=== PATIENT | male | born 1965 | race Caucasian/White ===

== ENCOUNTER → 2016-11-20 | Outpatient (CLI) | payer OTHER ==
[2016-11-20 14:36] LABS: BASO % 0.5 %; BASO ABS # 0.03 K/uL (0-0.2); COMPLETE YES; EOS % 0.5 %; HEMATOCRIT 42.7 % (42-52); IG% 0.3 %; LYMPH % 15.7 %; LYMPH ABS # 0.98 K/uL (1.2-3.4); MEAN CELL VOLUME 84.7 fL (80-100); MEAN CORPUSCULAR HEMOGLOBIN 30.4 pg (25-34); MEAN CORPUSCULAR HGB CONC 35.8 g/dl (32-36); MONO % 5.3 %; NEUT % 77.7 %; PLATELET COUNT 211 K/uL (130-400); RED BLOOD COUNT 5.04 M/uL (4.7-6.1); WHITE BLOOD COUNT 6.25 K/uL (4.8-10.8)
[2016-11-20 15:15] LABS: ALKALINE PHOSPHATASE 158 U/L (45-117); ALT/SGPT 39 U/L (12-78); AST/SGOT 19 U/L (15-37); BLOOD UREA NITROGEN 14 mg/dl (7-18); BUN/CREATININE RATIO 11.7 (10-20); CALCIUM 9.4 mg/dl (8.5-10.1); CARBON DIOXIDE 23 mmol/L (21-32); CHLORIDE 90 mmol/L (98-107); CHOLESTEROL 212 mg/dl (0-200); CHOLESTEROL/HDL RATIO 4.5; GLUCOSE 741 mg/dl (70-99); HDL CHOLESTEROL 47 mg/dl; LDL CHOLESTEROL CALCULATED 126 mg/dl; POTASSIUM 5.2 mmol/L (3.5-5.1); SODIUM 124 mmol/L (136-145); TRIGLYCERIDES 194 mg/dl (0-150); VERY LOW DENSITY LIPOPROT CALC 39 mg/dl
[2016-11-20 15:28] LABS: BETA-HYDROXYBUTYRATE 6.09 mg/dL (0.2-2.81)
[2016-11-21 05:48] LABS: ESTIMATED AVERAGE GLUCOSE 355 mg/dl; HA1C FLAG Normal (Normal)
== END | disposition home or self-care (01) ==
LOC: C.LABSPEC 13:38
PROVIDERS: ATTEND Family Medicine
DX: E11.21 Type 2 diabetes mellitus with diabetic nephropathy (principal); I10 Essential (primary) hypertension; E78.2 Mixed hyperlipidemia; R53.83 Other fatigue

== ENCOUNTER → 2017-02-22 | Outpatient (CLI) | payer OTHER ==
[2017-02-22 18:34] LABS: ALT/SGPT 35 U/L (12-78); AST/SGOT 22 U/L (15-37); BLOOD UREA NITROGEN 16 mg/dl (7-18); BUN/CREATININE RATIO 15.7 (10-20); CALCIUM 9.4 mg/dl (8.5-10.1); CARBON DIOXIDE 27 mmol/L (21-32); CHLORIDE 102 mmol/L (98-107); CREATININE 1.03 mg/dl (0.60-1.40); GLUCOSE 313 mg/dl (70-99); POTASSIUM 4.2 mmol/L (3.5-5.1); SODIUM 135 mmol/L (136-145)
[2017-02-22 18:36] LABS: ALB/GLOB RATIO 0.9 (0.9-2)
[2017-02-22 18:44] LABS: ALKALINE PHOSPHATASE 118 U/L (45-117)
[2017-02-23 06:42] LABS: ESTIMATED AVERAGE GLUCOSE 217 mg/dl; HA1C FLAG Normal (Normal)
== END | disposition home or self-care (01) ==
LOC: C.LABSPEC 17:46
PROVIDERS: ATTEND Family Medicine
DX: E11.21 Type 2 diabetes mellitus with diabetic nephropathy (principal)

== ENCOUNTER 2018-09-18 05:52 | Observation (INO) ==
--- NOTE | 2018-09-12 14:12 | Anesthesiology Consultation ---
Date of Service September 12, 2018 Assessment & Plan (1) Encounter for pre-operative examination: 09/12 - Case discussed with Dr. Starr, who states patient will need to have better glycemic control prior to procedure if anesthesia is to be involved--glucose was 496 on pre-op labs, most recent A1C was 14.2 in April 2018. Surgeon's office made aware--Dr. Boone ordering repeat fasting BMP. BMP done Saturday 09/16 -- glucose 429. Informed Dr. Starr, who feels case still needs to be postponed until glucose better controlled. Spoke to Nichelle at surgeon's office. She states Dr. Boone will do the case under local anesthesia if Dr. Starr does not want to proceed. Dr. Starr's contact info provided to facilitate conversation between surgeon and anesthesia. Chart Review Chart Review: Patient NOT seen in Pre Admission Testing History Surgery Operation Date: 09/18/18 08:00 Proposed Procedures p Biventricular ICD Implant, with Anesthesia - Felecia Boone, DO Height/Weight Height: 5 ft 10 in Weight: 83.46 kg Allergies Allergy/AdvReac Type Severity Reaction Status Date / Time Penicillins Allergy Hives Verified 09/13/18 13:35 Medications Home Medications Medication Instructions Recorded Confirmed Last Taken furosemide [Lasix] 80 mg PO QAM 09/12/18 09/13/18 Unknown metformin 1,000 mg PO BID 09/12/18 09/13/18 Unknown metoprolol succinate 200 mg PO QAM 09/12/18 09/13/18 Unknown semaglutide [Ozempic] 0.5 mg SUBCUT WK 09/12/18 09/13/18 Unknown valsartan 80 mg PO QPM 09/12/18 09/13/18 Unknown insulin NPH and regular human 16 ml SUBCUT BIDM 09/13/18 09/13/18 Unknown [Novolin 70/30 U-100 Insulin] Past Medical History Medical History NYHA Class II cardiovascular function Type 2 diabetes mellitus Essential (primary) hypertension Chronic systolic heart failure EF 15-20%; Currently wearing life vest. Dilated cardiomyopathy Past Family History Family History Mother Family history of diabetes mellitus Past Surgical History Surgical History Hx of cardiac cath [facility] - 02/14/18; NO STENTS History of shoulder surgery History of carpal tunnel release of both wrists Hx of hand surgery LEFT HAND Testing Laboratory Results 09/06/18 WBC: 3.48 H/H: 12.1/35.5 PLATELETS: 212 SODIUM: 136 POTASSIUM: 4.3 CHLORIDE: 93 CO2: 28 BUN: 14 CREATININE: 1.0 GLUCOSE: 496 SURGEON MADE AWARE Electrocardiogram Date: 05/17/18 Findings: + ST @ (102) Possible left atrial enlargement. Left axis deviation. Nonspecific intraventricular conduction delay. Compared with EKG of 02/22/2018, no sig nificant changes found. Chest X-Ray Date: 05/17/18 Findings: + NAD Echocardiogram Date: 07/12/18 EF: <20% EF is severely reduced. Left ventricular cavity is severely dilated. The LV wall thickness is normal. There is no left ventricular mural thrombus. There is severe diffuse left ventricular hypokinesis. Mildly dilated and hypokinetic right ventricle. Biatrial dilation. No significant change compared to study dated 02/11/2018. Cardiac Catheterization Date: 02/14/18 Mild nonobstructive 1 vessel CAD involving LAD otherwise normal coronary arteries per angiography. LVEDP 25 mmHg. EF less than 15%. Other Testing Cardiac MRI 08/27/2018 1. Severe biventricular dilation and systolic dysfunction. Prominent mid cavity anterior and lateral trabeculations are noted. These findings may be secondary to severe LV dilation, however primary non-compaction cardia myopathy leading to LV dysfunction and dilation cannot be excluded (especially in the presence of a positive family history of familial cardiomyopathy). Atypical mid wall enhancement noted in septal and inferolateral segments on late gadolinium enhanced imaging. 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 2. The left ventricular cavity size is severely enlarged. The LV wall thickness is normal. Left ventricular systolic function is severely reduced with a ca lculated EF of 11%. 3. The right ventricular cavity size is severely enlarged. The right ventricular systolic function severely reduced with an EF of 14%. 4. Severe left atrial enlargement.
[2018-09-18] MEDS ORDERED: CLINDAMYCIN 600 MG/54 ML BAG IV SCH (06:00)
[2018-09-18] MEDS ORDERED: LR 15ML/HR IV SCH (06:00)
[2018-09-18] MEDS ORDERED: CEFAZOLIN 1000MG 1,000 MG/7.5 ML SYR IV SCH (07:00)
[2018-09-18] MEDS ORDERED: BUPIVACAINE 0.25% 30 ML VIAL ONE (07:37)
[2018-09-18] MEDS ORDERED: LIDOCAINE HCL 1% 20 ML VIAL ONE (07:37)
[2018-09-18] MEDS ORDERED: BACITRACIN INJ 50,000 UNIT VIAL ONE (07:38)
--- NOTE | 2018-09-18 07:56 | Pre Anesthesia Assessment ---
Date of Service September 18, 2018 Pre Sedation Assessment Vital Signs Temp Pulse Resp BP Pulse Ox 09/18/18 07:17 36.7 C 87 16 105/72 96 Cardiovascular RRR, no murmur, no edema Respiratory normal respiratory effort, lungs clear to auscultation Pre-Sedation Airway Assessment Smoking Status: Never smoker Hx Sleep Apnea: No Hx Difficult Intubation: No Short, Thick Neck: No Thyromental Distance: < 3.5 Finger Breadths Oral Cavity: + Dental Abnormalities Mallampati Class: III ASA: ASA3 NPO Status Date of Last Intake of Fluids: 09/17/18 Date of Last Intake of Solid Food: 09/17/18 Procedure Planning Contraindications for Sedation: none Current Medications Reviewed: Yes Notes The planned sedation has been discussed with the patient. Informed Consent was obtained. I have identified the patient, determined the appropriateness of sedation and have assessed the patient immediately prior to the procedure. All medicine(s) and interventions are by my order.
--- NOTE | 2018-09-18 07:58 | History & Physical Report ---
Date of Service September 18, 2018 Assessment & Plan (1) NICM (nonischemic cardiomyopathy): History of Present Illness Chief Complaint: pt for elective BiV ICD Primary Care Provider: NO PCP Allergies Allergy/AdvReac Type Severity Reaction Status Date / Time Penicillins Allergy Hives Verified 09/13/18 13:35 Home Medications Home Medications Medication Instructions Recorded Confirmed Type furosemide [Lasix] 80 mg PO QAM 09/12/18 09/13/18 History metformin 1,000 mg PO BID 09/12/18 09/13/18 History metoprolol succinate 200 mg PO QAM 09/12/18 09/13/18 History semaglutide [Ozempic] 0.5 mg SUBCUT WK 09/12/18 09/13/18 History valsartan 80 mg PO QPM 09/12/18 09/13/18 History insulin NPH and regular human 16 ml SUBCUT BIDM 09/13/18 09/13/18 History [Novolin 70/30 U-100 Insulin] Past Med/Surg History Medical History NYHA Class II cardiovascular function Type 2 diabetes mellitus Essential (primary) hypertension Chronic systolic heart failure EF 15-20%; Currently wearing life vest. Dilated cardiomyopathy Surgical History Hx of cardiac cath [facility] - 02/14/18; NO STENTS History of shoulder surgery History of carpal tunnel release of both wrists Hx of hand surgery LEFT HAND Family History Mother Family history of diabetes mellitus Social History Preferred Language: Amharic Communication Ability: Effective Rotary Soil Stabilizer Operator Required: Yes Beliefs That Will Affect Care: None Current Living Situation: Family Feels Safe at Home: Yes Smoking Status: Never smoker Do You Dip or Chew Tobacco: Yes Hx Alcohol Use: No Hx Substance Use: No Review of Systems All systems reviewed & are unremarkable except as noted in HPI & below Physical Exam Physical Exam: aaox3, NAD NC/AT, EOMI Supple No JVD Nrl S1/S2, No murmur CTA b/l no w/r/r soft nt/nd no LE edema b/l skin intact no focal deficits Results & Data Vital Signs (Past 12 Hours) Vital Signs Temp Pulse Resp BP Pulse Ox 09/18/18 07:17 36.7 C 87 16 105/72 96
[2018-09-18] MEDS ORDERED: fentaNYL citrate 100 MCG/2 ML VIAL ONE ×2 (08:03→09:45)
[2018-09-18] MEDS ORDERED: MIDAZOLAM HCL 5 MG/ML 1 ML VIAL ONE (08:03)
[2018-09-18] MEDS ORDERED: MIDAZOLAM HCL 1 MG/ML 2ML VIAL ONE (09:45)
--- NOTE | 2018-09-18 11:02 | Post Anesthesia Assessment ---
Date of Service September 18, 2018 Post Sedation Assessment Vital Signs Temp Pulse Resp BP Pulse Ox 09/18/18 07:17 36.7 C 87 16 105/72 96 Recovery Score Activity: Moves 4 extremities Respiration: Deep Breath/Cough Circulation: +/-20% PreAnes Value Consciousness: Fully Awake Oxygen Saturation: > 92% On Room Air Discharge Sedation Level of Care: Fast Track Phase II Post Sedation Plan On clinical assessment, the patient appears to have tolerated the sedation without complications. Patient is recovering as anticipated. Patient will continue to be monitored by nursing and may be discharged when sedation discharge criteria are met per below protocol. Upon Completions of procedure and additional 15 minutes continue every 5 minute vital signs and the P.A.R. score; then discharge to a Phase I or Fast Track to Phase II per the following guidelines: * Discharge Patient to appropriate Phase II area if PAR is 8 or greater or return to pre- procedure baseline. The post - procedure orders will be as directed. * If PAR score is less than 8 or not return to pre-procedure baseline then patient will follow Phase I monitoring till PAR is reached for Phase II. The Phase I may be done in procedure room or may call to secure a Phase I area. * If naloxone or flumazenil are used for reversal, hold in Phase I for continued monitoring from when last reversal dose was given for a minimum of 60 minutes or longer pending the nurse and/or physician discretion of patient condition before discharge to Phase II. Please call the Sedation Physician to re-evaluate and complete post-note for discharge to Phase II area. Do NOT discharge from procedure sedation or Phase 1 until post- sedation evaluation note is complete by procedure /sedation MD Sedation Discharge Instructions to be given to the patient at discharge to home.
[2018-09-18] MEDS ORDERED: OXYCODONE/ACETAMINOPHEN 5mg/325mg TAB PO PRN (11:03)
--- NOTE | 2018-09-18 11:03 | Operative Report ---
Post Operative Report Pre & Post Diagnosis NICM, LBBB, Chronic systolic HF NYHA Class II Operation Date: 09/18/18 08:00 <No data on this case meets the specified criteria> Procedure Operation Date: 09/18/18 08:00 Actual Procedures p ICD Insertion Single or Dual - DO donna Payne Lead LV (No Priopr Implant) - DO donna Payne Venogram, Unilateral - Felecia Boone DO Surgeon Felecia Boone, Linesperson none Estimated Blood Loss 20 Findings Consistent with Post-Op Diagnosis Specimens none Description of Procedure see official procedure I attest to the content of the Intraoperative Record and any orders documented therein. Any exceptions are noted below.
--- NOTE | 2018-09-18 11:11 | Discharge Summary ---
Date of Service September 19, 2018 Admission HPI Per Admitting Provider Pt admitted for elective BIV ICD due to NICM, LBBB and chronic systolic HF NYHA Class II Admission Exam Per Admitting Provider aaox3, NAD NC/AT, EOMI Supple No JVD Nrl S1/S2, No murmur CTA b/l no w/r/r soft nt/nd no LE edema b/l skin intact no focal deficits Principal Diagnosis NICM s/p BiV ICD Discharge Exam aaox3, NAD NC/AT, EOMI Supple No JVD Nrl S1/S2, No murmur CTA b/l no w/r/r soft nt/nd no LE edema b/l skin intact no focal deficits left pectoral incision intact, no hematoma mild ecchymosis Discharge Data Allergies Allergy/AdvReac Type Severity Reaction Status Date / Time Penicillins Allergy Hives Verified 09/13/18 13:35 Procedures Performed Operation Date: 09/18/18 08:00 Actual Procedures p ICD Insertion Single or Dual - Felecia Boone DO s Lead LV (No Priopr Implant) - Felecia Boone DO s Venogram, Unilateral - Felecia Boone DO Ordered Studies CXR: No PTX, leads in position ECG: -BiV Paced Post Implant BiV ICD Interrogation: Normal function 09/18/18 07:15 EP Lab Images for PACS ONCE Hospital Course (1) LBBB (left bundle branch block): Total Time Total Time Spent Total Time Spent (In Minutes): 30 Total Time Includes: Examination of the Patient, Discharge Planning, Medication Reconciliation and Other Discharge Plan Discharge Items Patient Disposition: Home - Self-Care Reason For Visit: Non-ischemic Cardiomyopathy Discharge Diagnosis: nicm s/p biv icd Condition: Good Discharge Goals: Improve function Activity: As commented below Activity Comment: do not lift the left elbow over the left shoulder for 1 month Lifting: No more than 10 pounds Lifting Comment: do not lift more than 10 pounds with the left arm for 2 weeks Bathing: Keep incision dry Bathing Comment: can shower wednesday 09/20 let water run over the incision do not scrub it Sexual Activity: After two weeks Driving/Machine Use: Resume 1 day after discharge Non-emergency contact: Fastener Technologist Call non-emergency contact if: you have any medication questions Follow-Up/Referrals: PCP,NO [Primary Care Provider] - Diet: Resume previous diet Addtl Provider Instructions: device and wound check next week in [facility] if you notice any swelling or any concerns with the incision site call my office immediately Prescriptions: Continued furosemide [Lasix] 40 mg Tablet 80 mg PO QAM RF: 0 metformin 500 mg Tablet 1,000 mg PO BID RF: 0 metoprolol succinate 200 mg Tablet Extended Release 24 Hr 200 mg PO QAM RF: 0 valsartan 80 mg Tablet 80 mg PO QPM RF: 0 Ozempic 0.25 mg or 0.5 mg(2 mg/1.5 mL) Pen Injector 0.5 mg SUBCUT WK RF: 0 Novolin 70/30 U-100 Insulin 100 unit/mL (70-30) Suspension 16 ml SUBCUT BIDM RF: 0 Stand-Alone Forms: My [facility] Admission Data Attending Provider: Felecia Boone Primary Care Provider: PCP,NO
[2018-09-18] MEDS ORDERED: NON-FORMULARY MEDICATION (Semaglutide [Ozempic] 0.5 MG) SQ SCH (11:15)
[2018-09-18] MEDS ORDERED: PHARMACY GLYCEMIC MGMT CONSULT PRN (11:54)
[2018-09-18] MEDS ORDERED: INSULIN DETEMIR PER UNIT CHARGE SC ONE (12:15)
[2018-09-18] MEDS ORDERED: INSULIN REGULAR 250 UNITS in SODIUM CHLORIDE 0.9% 247.5 ML IV SCH (12:15)
[2018-09-18] MEDS ORDERED: INSULIN HUMAN REGULAR IV BOLUS 2 UNITS in SYRINGE 0 ML IV ONE (12:15)
[2018-09-18] MEDS: INSULIN ASPART 100 UNITS/ML 3 ML PEN SC SCH ×3 (13:30→20:01)
--- NOTE | 2018-09-18 13:52 | Pharmacy Report ---
Glycemic Control Consultation - Date of Service September 18, 2018 - Scope Scope: Glycemic Pharmacist consulted for glycemic control and to write orders per [facility] inpatient glycemic control protocol - Objective Weight: 80 kg Accuchecks BSG (last 24hrs): 09/18/18 09/18/18 09/18/18 07:28 07:30 11:09 POC Glucose 377 H* 361 H* 375 H* 09/18/18 09/18/18 11:38 11:39 POC Glucose 373 H* 384 H* - Recent Pertinent Medications Outpatient Anti-diabetic Regimen: * Novolin 70/30 16 units SC BIDM * Metformin 1 g po BID * Semaglutide 0.5 mg SC qWK * A1c = 9.2 % in 2017 Risk Factors for Insulin Resistance: * Infection: clindamycin perioperative * Recent Surgery: POD 0 s/p ICD insertion * Diet: T2DM - Assessment & Plan Assessment & Plan: ASSESSMENT: * 52 yo M with poor glycemic control as outpatient admitted for ICD insertion * BSG's all >350 mg/dL today - insulin drip would be best to quickly gain better control with the least risk for hypoglycemia. Discussed w Dr. Boone - JIE to start drip. Extensively discussed goal range risk/benefit for wound healing but also minimize symptoms of hypoglycemia (patient will be prone to symptoms of hypoglycemia even at euglycemic blood sugars 2nd degree of outpatient hyperglycemia). Will use goal range for DKA for now. * Per conversations w RN and Dr. Boone - usual BSG's as outpatient in 300's, sometimes 400's. Will not order A1c at [facility] at this time as Dr. Boone notes recent A1c in [facility] and does not need duplicate. * Will not use home Novolin 70/30 at this time as it will increase risk for both hypo- and hyperglycemia. Will instead give one time dose of Levemir now to try to eliminate need for insulin drip tonight/overnight and hope to use NPH as basal insulin tomorrow to allow easier transition back to outpatient regimen using Novolin 70/30 PLAN FOR INPATIENT GLYCEMIC CONTROL: * Starting IV insulin infusion per moderate stress protocol * Goal Range 150 - 250 mg/dl for now. May consider decrease depending on presence or absence of hypoglycemic symptoms. Would not suggest to decrease below 140-180 mg/dL at any point during this admission * Hold outpatient diabetes medications (metformin, semaglutide) * Basal insulin * Levemir 20 units SQ x1 * Bolus insulin * NovoLog per scale ACHS or Q6hrs while NPO * Nutritional / Prandial insulin per carb ratio generated by insulin drip calculator * Please note that the plan above was derived based on current level of insulin resistance and hospital stress. These recommendations are appropriate for inpatient admission only. Plan of care upon discharge will need to be reassessed to avoid potential outpatient hypo/hyperglycemia. Thank you.
[2018-09-18] MEDS: CLINDAMYCIN 900 MG in DEXTROSE 5% 50 ML IV SCH ×2 (16:05→23:50)
[2018-09-18] MEDS ORDERED: INSULIN HUMAN 70% NPH/30% REGULAR SQ SCH (17:00)
[2018-09-18] MEDS: CEFAZOLIN: ALLERGY NOTED TO ORDERED MEDICATION SCH ×3 (19:11→19:13)
[2018-09-18] MEDS: ACETAMINOPHEN 325 MG TAB PO PRN (20:04)
[2018-09-18] MEDS ORDERED: VALSARTAN 80 MG TAB PO SCH (21:00)
[2018-09-18] MEDS ORDERED: METFORMIN HCL 500 MG TAB PO SCH (21:00)
[2018-09-19] MEDS ORDERED: GLUCOSE 10 TABS/TUBE PO PRN (03:45)
[2018-09-19] MEDS ORDERED: GLUCOSE 40% GEL 15 GM TUBE PO PRN (03:45)
[2018-09-19] MEDS ORDERED: GLUCAGON FOR INJ 1 MG VIAL SQ PRN (03:45)
[2018-09-19] MEDS ORDERED: CARBOHYDRATES FOR HYPOGLYCEMIA PO PRN (03:45)
[2018-09-19] MEDS ORDERED: DEXTROSE 50% 50 ML SYRINGE IV PRN (03:45)
[2018-09-19] MEDS: ACETAMINOPHEN 325 MG TAB PO PRN (04:03)
--- NOTE | 2018-09-19 06:28 | XRay Report ---
XR chest 2V routine HISTORY: 52 years-old Male post implant status post placement of a left subclavian pacer/AICD COMPARISON: None available TECHNIQUE: PA and lateral views of the chest FINDINGS: Cardiac silhouette is upper limits of normal in size. Status post placement of a left subclavian pace r/AICD with leads overlying the expected locations of the ventricles and right atrium. No postprocedu ral pneumothorax identified. No pleural effusion, focal airspace consolidation or overt pulmonary julian ma. Bones of the chest appear grossly intact. IMPRESSION: Status post placement of a left subclavian pacer/AICD. No postprocedural pneumothorax. The above report was generated using voice recognition software. It may contain grammatical, syntax o r spelling errors. Electronically signed by: Benjamin Javier M.D. 09/19/2018 6:27 AM
[2018-09-19] MEDS ORDERED: INSULIN ASPART 100 UNITS/ML 3 ML PEN SC SCH (07:30)
[2018-09-19] MEDS ORDERED: FUROSEMIDE 40 MG TAB PO SCH (09:00)
[2018-09-19] MEDS ORDERED: METOPROLOL SUCC 50MG EXT REL TAB PO SCH (09:00)
--- NOTE | 2018-09-21 07:30 | Operative Report ---
DATE OF OPERATION: 09/18/2018 PREOPERATIVE DIAGNOSES: Nonischemic cardiomyopathy, left bundle branch block, chronic systolic heart failure, [place] [employer] class 2. POSTOPERATIVE DIAGNOSES: Nonischemic cardiomyopathy, left bundle branch block, chronic systolic heart failure, [place] [employer] class 2. PROCEDURE: Biventricular rate responsive implantable cardiac defibrillator along with a peripheral and coronary sinus venogram under fluoroscopic guidance. SURGEON: Felecia Boone DO OTOLARYNGOLOGY REP: None. ANESTHESIA: Monitored conscious sedation administered under my supervision by Lino Neely. Start time 8:12, end time 10:38. Total of 7 mg of Versed, 200 mcg of fentanyl. INTRAVENOUS FLUIDS: 50 mL. IV CONTRAST: 20 mL. ANTIBIOTICS: 600 mg of clindamycin. COMPLICATIONS: None. CONDITION: Stable. URINE OUTPUT: Not applicable. SPECIMEN: None. FINDINGS: See below. DRAINS: None. BLOOD LOSS: 30 mL. INDICATIONS: This is a 52-year-old gentleman with a past medical history for nonischemic cardiomyopathy diagnosed in January of 2018, his ejection fraction was 20% and he is wearing a LifeVest. He had a recent cardiac MRI that was negative for any myocardial disease such as sarcoidosis, left bundle branch block with QRS 130 milliseconds, chronic systolic heart failure, [place] [employer] class 2, a history of VT when he was in [facility]. He was briefly on amiodarone; however, this was stopped secondary to blurry vision. Sinus tachycardia at time, hypertension, family history of premature coronary artery disease, a very poorly uncontrolled diabetic, COPD, significant prior alcohol use stopped 15 years ago and current active tobacco chew. Due to his nonischemic cardiomyopathy, left bundle and chronic heart failure, he was recommended biventricular implantable defibrillator. CONSENT: Consent was obtained prior to the patient going into electrophysiology lab. The patient was informed of risks, benefits and alternative procedure. Risks include but not limited to sudden cardiac , cardiac arrhythmias, cerebrovascular accident, myocardial infarction, injury to the blood vessels, chamber of the heart, lung, bleeding, and infection. The patient understood these risks and agreed to the procedure as planned. Informed consent was obtained. DESCRIPTION OF THE PROCEDURE: The patient was brought into the electrophysiology lab in fasting state. He was connected to continuous desk monitor. A timeout was performed to ensure patient's identity and procedure correctly. The patient was prepped and draped over the left infraclavicular space in normal surgical standard fashion. Monitored conscious sedation was given throughout the procedure for patient's comfort level. [place] precautions were maintained throughout the procedure. A 10 mL of 1% lidocaine, bupivacaine mixture were given in the left deltopectoral groove. Incision was made in left deltopectoral groove. Blunt dissection performed down to identify the cephalic vein. Cephalic vein was identified and isolated using 0 silk ties. Then a peripheral venogram was used to identify the axillary vein using 10 mL of contrast diluted in 10 mL of saline followed by 20 mL flush. Axillary venous access was obtained through a needlestick without any problems. A guidewire was inserted without any resistance. Then I went back to the cephalic vein, I nicked it with an 11 blade and a guidewire was inserted without any resistance. An 8-[place] sheath was inserted over the guidewire without any resistance. Dilator was removed and a second guidewire was inserted through the 8-[place] sheath to allow for retained venous access. The 9.5-[place] sheath was inserted over one of the guidewires in the cephalic vein. Then the guidewire and dilator removed and the right ventricular defibrillator lead was advanced into the right ventricle and positioned into right ventricular apex under fluoroscopic guidance. There was adequate pacing and sensing thresholds and no diaphragmatic stimulation with high output pacing. The 9.5-[place] sheath was peeled away and lead was fixated to pectoralis muscle using 0 silk suture. An 8-[place] sheath was inserted over the retained guidewire through the cephalic vein. Guidewire and dilator removed and the right atrial lead was advanced into right atrium and positioned into right atrial appendage under fluoroscopic guidance. There was adequate pacing and sensing thresholds and no diaphragmatic stimulation with high output pacing. The 8-[place] sheath was peeled away and lead was fixated to pectoralis muscle using 0 silk suture. We then set up to do the left ventricular lead. A 9.5-[place] sheath was inserted over the guidewire and axillary venous site. The guidewire and dilator were removed. Then, an outer Medtronic MPX sheath was advanced over Glidewire into the right atrium. The Glidewire and dilator were removed. Then, the coronary sinus was cannulated using an EP diagnostic coronary sinus catheter. The MPX was advanced over the coronary sinus diagnostic EP catheter into the coronary sinus. A venogram of the coronary sinus was performed to identify a nice posterolateral branch. I was able to wire down this branch using a 90 inner and a Whisper wire and then I tracked initially the S curved Medtronic quadripolar lead out into the vein branch. We had adequate pacing and sensing thresholds and no diaphragmatic stimulation with high output pacing. However, when I started to slit in the 90 inner, the sheath actually slit and broke, so I had to restart over by tracking the lead out and rewiring with a Whisper wire. At this time, I did not need an inner 90. I was able to retract the S curved lead out into the branch; however, when I was splitting the MPX under fluoroscopic guidance, the lead pulled back, so at this point I then recannulated the coronary sinus with a new MPX and the EP diagnostic catheter and then I was able to wire out into that branch again and at this time we used the Medtronic straight pronged quadripolar lead and then I was able to add adequate pacing and sensing thresholds and no diaphragmatic stimulation with high output pacing. I was able to switch out the Whisper for a stylet and then slit the MPX under fluoroscopic guidance. Then, the 9.5-[place] sheath was peeled away and lead was fixated to pectoralis muscle using 0 silk suture. A pursestring using a CT Vicryl on a 2-0 needle was used to tie around the cephalic venous site as there was a good amount of backbleeding. There was not too much from the axillary vein so I did not need that. Then, a defibrillator pocket was created using blunt dissection over the pectoralis muscle within the pectoralis fascia. Pocket was flushed with copious amounts of bacitracin saline wash and inspected for hemostasis. Pulse generator was attached to leads making sure that the pins were in appropriate position, passed set screw and set screws were all tightened. Pulse generator was then placed in the antibiotic Tyrx pouch followed then by being placed in the pocket, making sure that the leads were lying flat beneath the device. The incision was then closed in 3-layer fashion using 2-0 Vicryl interrupted suture followed by 3-0 Vicryl interrupted suture followed by a 4-0 Monocryl running stitch and Dermabond was applied. EQUIPMENT: 1. The pulse generator is a Medtronic Claria MRI Quad [employer]ING-D SureScan [id number], serial number [id number]. 2. The antibiotic pouch reference number [id number], lot number [id number], expiration 10/26/2018. 3. Right atrial lead Medtronic 5076-52 cm, serial number [id number]. 4. Right ventricular lead Medtronic 6935M-62 cm, serial number [id number]. INTRAOPERATIVE TESTIN. Right atrial lead: P-waves 2.1 millivolts, impedance 610 ohms, threshold 0.7 volts at 1.1 milliamps. 2. Right ventricular lead: R-waves 7.4 millivolts, impedance 587 ohms, threshold 0.4 volts at 0.5 milliamps. 3. Left ventricular lead: Impedance 82 ohms, programmed LV2 to LV3 and threshold 0.4 volts at 0.4 milliamps. FINAL MEASUREMENTS THROUGH THE DEVICE: 1. Right atrial lead: P-waves 2.4 millivolts, impedance 513 ohms, threshold 1 volt at 0.4 milliseconds. 2. Right ventricular lead: R-waves 7.4 millivolts, impedance 456 ohms, threshold 0.5 volts at 0.4 milliseconds. 3. The RV coil was 63 ohms. 4. The left ventricular lead programmed LV2 to LV3, impedance 646 ohms, threshold 0.5 volts at 0.4 milliseconds. FINAL PARAMETERS: DDDR 60/130. Right atrial and right ventricular amplitude 3.5 volts, pulse width 0.4 milliseconds, sensitivity 0.3 millivolts. Left ventricular amplitude 4 volts, pulse width 0.4 milliseconds. A VT monitor zone at 150 beats per minute for 32 detection intervals, a VT zone at 167 beats per minute for 16 detection intervals and a VF zone at 200 beats per minute for 30/40 detection intervals. IMPRESSION: Successful biventricular implantable cardiac defibrillator implantation along with peripheral and coronary sinus venogram under fluoroscopic guidance secondary to nonischemic cardiomyopathy, left bundle branch block, chronic systolic heart failure and history of ventricular tachycardia. PLAN: Monitor patient overnight, 12-lead ECG, chest x-ray. He is not allowed to lift left elbow over left shoulder for 1 month. He cannot lift more than 10 pounds with the left arm for 2 weeks. He can shower in 2 days, let water run over the incision, do not scrub it. We will give him some antibiotics postop 2 doses of clindamycin as he is a poorly controlled diabetic and had a higher risk of infection. I attest to the content of the Intraoperative Record and any orders documented therein. Any exception s are noted below.
== END 2018-09-19 09:00 | disposition home or self-care (01) ==
LOC: ASU 05:52 → 2E 05:52
PROC: EPB.ICD (2018-09-18 08:00)